=== PATIENT | male | born 1995 | race Caucasian/White ===

== ENCOUNTER 2017-10-03 12:11 | Emergency (ER) | payer OTHER ==
[2017-10-03] MEDS ORDERED: Hydromorphone 1 mg/ml Ampule IV ONE (12:35)
[2017-10-03] MEDS ORDERED: Sodium Chloride 0.9% 1000 ML 1,000 ML IV STA (12:35)
[2017-10-03] MEDS ORDERED: Phenergan 25 MG INJ IV ONE (12:35)
[2017-10-03] MEDS ORDERED: TORAdol 30 mg Injection IV ONE (12:35)
--- NOTE | 2017-10-03 12:35 | ERPHSYRPT ---
- History of Present Illness Time Seen by Provider: 10/03/17 12:28 Historian: patient Exam Limitations: no limitations Patient Subjective Stated Complaint: pt states he has began having right flank pain and radiates to right groin. Triage Nursing Assessment: pt pink, warm, dry. abdomen soft, nontender. bowel sounds present in all 4 qauds. Physician History: The patient is a 22-year-old male with his mother complaining that he had a sudden onset of right flank pain with pain radiating down into his right groin. He works nights and was asleep when the pain woke him up. This began about 2 hours ago. He denies problems with urination. He denies nausea or vomiting. His mother has a prior history of multiple episodes of kidney stones. His mother had her first kidney stone at age 23. His past medical history is unremarkable. Timing/Duration: today, hour(s) (2) Activities at Onset: sleep Quality: sharpness Abdominal Pain Onset Location: flank (right) Pain Radiation: groin (right) Severity of Pain-Max: moderate Severity of Pain-Current: moderate Modifying Factors: Improves With: nothing Associated Symptoms: denies symptoms Previous symptoms: no prior history Allergies/Adverse Reactions: No Known Drug Allergies Allergy (Unverified 10/03/17 12:24) Home Medications: No Reportable Medications [No Reported Medications] 06/03/14 [History] Hx Tetanus, Diphtheria Vaccination/Date Given: Yes (up to date) Hx Influenza Vaccination/Date Given: No Hx Pneumococcal Vaccination/Date Given: No Immunizations Up to Date: Yes - Review of Systems Constitutional: No Fever, No Chills Eyes: No Symptoms Ears, Nose, & Throat: No Symptoms Respiratory: No Cough, No Dyspnea Cardiac: No Chest Pain, No Edema, No Syncope Abdominal/Gastrointestinal: Abdominal Pain, No Nausea, No Vomiting Genitourinary Symptoms: No Dysuria Musculoskeletal: No Back Pain, No Neck Pain Skin: No Rash Neurological: No Dizziness, No Focal Weakness, No Sensory Changes Psychological: No Symptoms Endocrine: No Symptoms Hematologic/Lymphatic: No Symptoms Immunological/Allergic: No Symptoms All Other Systems: Reviewed and Negative - Past Medical History Pertinent Past Medical History: No - Past Surgical History Past Surgical History: No - Social History Smoking Status: Never smoker Exposure to second hand smoke: Yes Drug Use: none Patient Lives Alone: No - Nursing Vital Signs Nursing Vital Signs: Initial Vital Signs Temperature 98.5 F 10/03/17 12:18 Pulse Rate 83 10/03/17 12:18 Respiratory Rate 18 10/03/17 12:18 Blood Pressure 151/85 10/03/17 12:18 O2 Sat by Pulse Oximetry 99 10/03/17 12:18 Pain Scale Pain Intensity 0 - Physical Exam General Appearance: mild distress Eye Exam: PERRL/EOMI, eyes nml inspection Ears, Nose, Throat Exam: normal ENT inspection, pharynx normal, moist mucous membranes Neck Exam: normal inspection, non-tender, supple, full range of motion Respiratory Exam: normal breath sounds, lungs clear, No respiratory distress Cardiovascular Exam: regular rate/rhythm, normal heart sounds Gastrointestinal/Abdomen Exam: tenderness (mild tenderness right flank) Rectal Exam: not done Back Exam: normal inspection, normal range of motion, No CVA tenderness, No vertebral tenderness Extremity Exam: normal inspection, normal range of motion, pelvis stable Neurologic Exam: alert, oriented x 3, cooperative, normal mood/affect, nml cerebellar function, sensation nml, No motor deficits Skin Exam: normal color, warm, dry SpO2 Interpretation: normal SpO2: 99 Oxygen Delivery: Room Air - CT Exams Abdomen/Pelvis CT Interpretation: Tele-radiologist Report, Other (2 mm stone in urinary bladder with mild ureteral hydronephrosis per Dr Garcia.) Ordered Tests: Active Orders 24 hr Category Date Time Status IV Insertion STAT Care 10/03/17 12:35 Active NPO (ED) STAT Care 10/03/17 12:35 Active ABDOMEN AND PELVIS W/0 CONTRAS [CT] Stat Exams 10/03/17 12:35 Completed CBC W DIFF Stat Lab 10/03/17 12:20 Completed CMP Stat Lab 10/03/17 12:20 Completed LIPASE Stat Lab 10/03/17 12:20 Completed Lactic Acid Stat Lab 10/03/17 13:15 Completed UA W/RFX UR CULTURE Stat Lab 10/03/17 12:20 Received Medication Summary Generic Name Dose Route Start Last Admin Trade Name Freq PRN Reason Stop Dose Admin Sodium Chloride 1,000 mls @ 999 mls/hr 10/03/17 12:35 10/03/17 13:00 Sodium Chloride 0.9% 1000 Ml IV 10/03/17 13:35 999 mls/hr .Q1H1M STA Administration Discontinued Medications Generic Name Dose Route Start Last Admin Trade Name Michael PRN Reason Stop Dose Admin Hydromorphone HCl 2 mg 10/03/17 12:35 Hydromorphone 1 Mg/Ml Ampule IV 10/03/17 12:36 STAT ONE Hydromorphone HCl Confirm 10/03/17 12:46 Hydromorphone 1 Mg/Ml Ampule Administered 10/03/17 12:47 Dose 2 mg .ROUTE .STK-MED ONE Sodium Chloride Confirm 10/03/17 12:46 Sodium Chloride 0.9% 1000 Ml Administered 10/03/17 12:47 Dose 1,000 mls @ ud .ROUTE .STK-MED ONE Ketorolac Tromethamine 30 mg 10/03/17 12:35 10/03/17 13:07 Toradol 30 Mg Injection IV 10/03/17 12:36 30 mg STAT ONE Administration Ketorolac Tromethamine Confirm 10/03/17 12:46 Toradol 30 Mg Injection Administered 10/03/17 12:47 Dose 30 mg .ROUTE .STK-MED ONE Promethazine HCl 25 mg 10/03/17 12:35 10/03/17 13:03 Phenergan 25 Mg Inj IV 10/03/17 12:36 25 mg STAT ONE Administration Promethazine HCl Confirm 10/03/17 12:46 Phenergan 25 Mg Inj Administered 10/03/17 12:47 Dose 25 mg .ROUTE .STK-MED ONE Tamsulosin HCl 0.4 mg 10/03/17 12:37 10/03/17 12:58 Flomax 0.4 Mg PO 10/03/17 12:38 0.4 mg DAILY STA Administration Tamsulosin HCl Confirm 10/03/17 12:46 Flomax 0.4 Mg Administered 10/03/17 12:47 Dose 0.4 mg .ROUTE .STK-MED ONE Lab/Rad Data: Laboratory Result Diagrams 10/03/17 12:20 10/03/17 12:20 Laboratory Results 10/03/17 10/03/17 10/03/17 Range/Units 13:15 12:20 12:20 WBC 9.5 (4.0-10.5) K/mm3 RBC 5.34 (4.1-5.6) M/mm3 Hgb 15.5 (12.5-18.0) gm/dl Hct 45.7 (42-50) % MCV 85.6 (78-100) fl MCH 29.0 (26-32) pg MCHC 33.9 (32-36) g/dl RDW 13.3 (11.5-14.0) % Plt Count 182 (150-450) K/mm3 MPV 11.2 H (6-9.5) fl Gran % 58.2 (36.0-66.0) % Lymphocytes % 27.1 (24.0-44.0) % Monocytes % 8.9 (0.0-12.0) % Eosinophils % 5.4 H (0.00-5.0) % Basophils % 0.4 (0.0-0.4) % Basophils # 0.04 (0-0.4) Sodium 140 (136-145) mEq/L Potassium 3.8 (3.5-5.1) mEq/L Chloride 104 (98-107) mEq/L Carbon Dioxide 23.2 (21-32) mEq/L Anion Gap 16.4 H (5-15) MEQ/L BUN 9 (9-20) mg/dL Creatinine 1.24 (0.55-1.30) mg/dl Estimated GFR > 60 ML/MIN Glucose 112 H (70-110) MG/DL Lactic Acid 1.2 (0.4-2.0) Calcium 8.8 (8.5-10.1) mg/dL Total Bilirubin 0.50 (0.2-1.0) mg/dL AST 37 (15-37) U/L ALT 30 (12-78) U/L Alkaline Phosphatase 82 (46-116) U/L Serum Total Protein 7.4 (6.4-8.2) gm/dL Albumin 3.9 (3.4-5.0) g/dL Lipase 92 (73-393) U/L - Progress Progress: improved Counseled pt/family regarding: lab results, diagnosis, need for follow-up, rad results - Departure Time of Disposition: 13:31 Departure Disposition: Home Clinical Impression: Nephrolithiasis Condition: Stable Critical Care Time: No Referrals: CHRISTOPHER NASCIMENTO [Primary Care Provider] - Additional Instructions: The CT scan of your abdomen and pelvis showed a small 2 mm kidney stone already in your bladder. You were given Toradol 30 mg, Phenergan 25 mg, and IV fluids in the ER. You have no other kidney stones visible in the kidneys at this time. Follow-up with your primary care doctor with the stone that you passed.
[2017-10-03] MEDS ORDERED: Flomax 0.4 MG PO STA (12:37)
[2017-10-03 12:43] LABS: BASOPHIL % 0.4 % (0.0-0.4); Basophil (Absolute #) 0.04 (0-0.4); Eosinophil % 5.4 % (0.00-5.0); Eosinophil (Absolute #) 0.51 (0-0.5); Granulocyte Absolute (ANC) 5.54 (1.4-6.9); Granulocytes % 58.2 % (36.0-66.0); Hematocrit 45.7 % (42-50); Hemoglobin 15.5 gm/dl (12.5-18.0); Lymphocyte (Absolute #) 2.58 (1.0-4.6); Lymphocytes % 27.1 % (24.0-44.0); Mean Cell Volume 85.6 fl (78-100); Mean Corpuscular Hgb Concent. 33.9 g/dl (32-36); Mean Platelet Volume 11.2 fl (6-9.5); Monocyte (Absolute #) 0.85 (0.0-1.3); Monocytes % 8.9 % (0.0-12.0); Platelet Count 182 K/mm3 (150-450); Red Blood Count 5.34 M/mm3 (4.1-5.6); Red Cell Distribution Width 13.3 % (11.5-14.0); White Blood Count 9.5 K/mm3 (4.0-10.5)
[2017-10-03] MEDS ORDERED: TORAdol 30 mg Injection ONE (12:46)
[2017-10-03] MEDS ORDERED: Phenergan 25 MG INJ ONE (12:46)
[2017-10-03] MEDS ORDERED: Flomax 0.4 MG ONE (12:46)
[2017-10-03] MEDS ORDERED: Hydromorphone 1 mg/ml Ampule ONE (12:46)
[2017-10-03] MEDS ORDERED: Sodium Chloride 0.9% 1000 ML 1,000 ML ONE (12:46)
[2017-10-03 12:58] LABS: ALBUMIN 3.9 g/dL (3.4-5.0); ALKALINE PHOSPHATASE 82 U/L (46-116); ANION GAP 16.4 MEQ/L (5-15); BLOOD UREA NITROGEN 9 mg/dL (9-20); CHLORIDE 104 mEq/L (98-107); Calcium 8.8 mg/dL (8.5-10.1); Carbon Dioxide 23.2 mEq/L (21-32); Creatinine 1 1.24 mg/dl (0.55-1.30); EST GLOMERULAR FILTRATION RATE > 60 ML/MIN; Glucose 112 MG/DL (70-110); LIPASE 92 U/L (73-393); Potassium 3.8 mEq/L (3.5-5.1); SGOT/AST 37 U/L (15-37); SGPT/ALT 30 U/L (12-78); SODIUM 140 mEq/L (136-145); Total Protein 7.4 gm/dL (6.4-8.2)
--- NOTE | 2017-10-03 13:07 | XRAY ---
Indication: Right flank pain. Multiple contiguous axial images obtained through the abdomen and pelvis without contrast using renal stone protocol. Comparison: None Lung bases are clear. Heart is not enlarged. There is a 2-3 mm calculus in the posterior bladder. Right ureter is minimally prominent presumed from recent passage of said calculus. No hydronephrosis or perinephric fluid. Noncontrasted stomach and bowel loops appear nonobstructed. Normal appendix. No free fluid/air. Spleen is enlarged measuring 15 cm in greatest axial dimension. Mild fatty liver. Remaining liver, gallbladder, pancreas, spleen, adrenal glands, kidneys, bladder, and aorta appear unremarkable for noncontrast exam. Osseous structures intact. Impression: 1. 2-3 mm urinary bladder calculus presumed from right-sided passage. 2. Incidental fatty liver and splenomegaly. CTDI 23.68
[2017-10-03 13:36] VITALS: O2SAT 99
[2017-10-03 13:58] VITALS: BP 138/69; PULSE 83
[2017-10-03 16:09] LABS: Appearance CLEAR (CLEAR); Glucose NEGATIVE (NEGATIVE); Leukocyte Esterase NEGATIVE (NEGATIVE); Nitrite NEGATIVE (NEGATIVE); Protein,Urine Dip NEGATIVE (Negative)
[2017-10-03 16:10] LABS: Bilirubin NEGATIVE (NEGATIVE); Blood 250 Ery/ul (0-5); Epithelial Cells RARE /HPF (FEW); Ketones NEGATIVE (NEGATIVE); Mucus SLIGHT /HPF (NEGATIVE); Urobilinogen NORMAL mg/dL (0-1); WBC 0-2 /HPF (0-5)
== END 2017-10-03 14:07 | disposition home or self-care (01) ==
LOC: ED 12:11
DX: N20.0 Calculus of kidney (principal)
CPT/HCPCS: 36000; 36415; 74176; 80053; 81000; 83605; 83690; 85025; 96360; 96374; 96375; 99284; J1170; J1885; J2550; A9270-GY

== ENCOUNTER 2021-03-14 21:06 | Emergency (ER) | payer OTHER ==
[2021-03-14] MEDS ORDERED: XYLOCAINE 1% HCL 20 ML MDV IJ ONE (21:07)
[2021-03-14 21:15] VITALS: O2SAT 99
[2021-03-14 22:00] LABS: INFLUENZA A NEGATIVE (NEGATIVE); INFLUENZA B NEGATIVE (NEGATIVE)
[2021-03-14 22:23] LABS: Appearance CLEAR (CLEAR); Bilirubin NEGATIVE (NEGATIVE); Blood NEGATIVE Ery/ul (0-5); Epithelial Cells RARE /HPF (FEW); Glucose NEGATIVE (NEGATIVE); Ketones NEGATIVE (NEGATIVE); Leukocyte Esterase NEGATIVE (NEGATIVE); Mucus SLIGHT /HPF (NEGATIVE); Nitrite NEGATIVE (NEGATIVE); Protein,Urine Dip 30 (Negative); Specific Gravity 1.026 (1.005-1.025); Urobilinogen NEGATIVE mg/dL (0-1)
[2021-03-14] MEDS ORDERED: Rocephin 1000 MG INJ IM ONE (22:31)
[2021-03-14] MEDS ORDERED: Zithromax 250 MG TABLET PO ONE (22:32)
--- NOTE | 2021-03-14 22:36 | ERPHSYRPT ---
- History of Present Illness Source: patient Exam Limitations: other (Very poor historian) Patient Subjective Stated Complaint: Patient states " I have been having nasal congestion and loose stools for the last 3 days." Triage Nursing Assessment: Patient arrived to ED and ambulated back to room without difficulty. Patient A/O times 4. Patient gait slow and steady. Patient able to follow instructions without difficulty. Lungs clear bilateral A/P throughout. Patient denies SOB. Patient denies chest pain. Cap refill < 3 seconds. No S/S of acute respiratory distress noted. 02 sat > 95%. + BS times 4 quads. ABD soft, round, non-distended. Patient denies any pain or discomfort upon palpitation. Patient states he feels like he has bubbles in his belly. Patient stated he was at work today and he had loose stools so many times that his co-workers were getting mad. Patient stated he has tried pepto, tylenol, nasal spray and nothing seems to help. Patient stated he is congested mostly right side of nose and has been having pretty bad headache. Patient denies any N/V. Patient states everytime he eats he has to run to bathroom. Patient states his fluid intake has been fine. Skin turgor < 3 seconds. Oral mucosa moist, clean. No S/S of dehydration noted. Throat WNL. Bilateral ears upon visual inspection WNL. No JVD noted. Patient denies any throat or ear pain. Patient denies any cough Physician History: 25 yo wm who is a very poor historian states that he has had nasal congestion x3days/diarrhea but denies ST/cough/abdominal pain/fever/nausea/vomiting/melena/hematochezia. Pt states that he is very ill and is worried about his job. Unsure of the cause of his vague symptoms, CBC/CMP/strep/flu/UA ordered. Pt refused blood work because he is afraid of needles. Timing/Duration: other (3 days) Modifying Factors: Improves With: nothing Associated Symptoms: No nausea, No vomiting, No abdominal pain, No shortness of breath, No heartburn, No diaphoresis, No cough, No chills, No chest pain, No fever, No headaches, No loss of appetite, No malaise, No rash, No syncope, No seizure, No weakness Allergies/Adverse Reactions: No Known Drug Allergies Allergy (Unverified 06/14/21 21:15) Home Medications: No Reportable Medications [No Reported Medications] 06/03/14 [History] Hx Tetanus, Diphtheria Vaccination/Date Given: Yes Hx Influenza Vaccination/Date Given: No Hx Pneumococcal Vaccination/Date Given: No Immunizations Up to Date: Yes Travel Risk - International Travel Have you traveled outside of the country in past 3 weeks: No If Yes, where;: N - Coronavirus Screening Are you exhibiting any of the following symptoms?: No Close contact with a COVID-19 positive Pt in past 14-21 Days: No - Vaccine Status Have you recieved a Covid-19 vaccination: No - Review of Systems Constitutional: No Symptoms, Fatigue, Lethargy Eyes: No Symptoms Ears, Nose, & Throat: No Symptoms, Nose Congestion, Nose Discharge Respiratory: No Symptoms Cardiac: No Symptoms Abdominal/Gastrointestinal: No Symptoms, Diarrhea Genitourinary Symptoms: No Symptoms Musculoskeletal: No Symptoms Skin: No Symptoms Neurological: No Symptoms Psychological: No Symptoms Endocrine: No Symptoms Hematologic/Lymphatic: No Symptoms Immunological/Allergic: No Symptoms - Past Medical History Pertinent Past Medical History: No Neurological History: No Pertinent History ENT History: No Pertinent History Cardiac History: No Pertinent History Respiratory History: No Pertinent History Endocrine Medical History: No Pertinent History Musculoskeletal History: No Pertinent History GI Medical History: No Pertinent History History: No Pertinent History Psycho-Social History: No Pertinent History Male Reproductive Disorders: No Pertinent History - Past Surgical History Past Surgical History: No Neuro Surgical History: No Pertinent History Cardiac: No Pertinent History Respiratory: No Pertinent History Gastrointestinal: No Pertinent History Genitourinary: No Pertinent History Musculoskeletal: No Pertinent History Male Surgical History: No Pertinent History - Social History Smoking Status: Former smoker Exposure to second hand smoke: Yes Drug Use: none Patient Lives Alone: No Significant Family History: no pertinent family hx - Nursing Vital Signs Nursing Vital Signs: Initial Vital Signs Temperature 98.2 F 03/14/21 21:13 Pulse Rate 86 03/14/21 21:13 Respiratory Rate 22 03/14/21 21:13 Blood Pressure 129/93 03/14/21 21:13 O2 Sat by Pulse Oximetry 99 03/14/21 21:13 Pain Scale Pain Intensity 4 - Physical Exam General Appearance: no apparent distress Eye Exam: PERRL/EOMI, eyes nml inspection Ears, Nose, Throat Exam: normal ENT inspection, TMs normal, pharynx normal, moist mucous membranes Neck Exam: normal inspection, non-tender, supple, No meningismus, No mass, No Brudzinski, No Kernig's Respiratory Exam: normal breath sounds, lungs clear, airway intact, No respiratory distress Cardiovascular Exam: regular rate/rhythm, normal heart sounds, normal peripheral pulses, No murmur Gastrointestinal/Abdomen Exam: soft, normal bowel sounds, No tenderness Extremity Exam: normal inspection, normal range of motion Neurologic Exam: alert, oriented x 3, cooperative, director nurses' registry II-XII nml as tested, normal mood/affect, nml station & gait, sensation nml, No motor deficits, No sensory deficit Skin Exam: normal color, warm, dry, No rash Lymphatic Exam: No adenopathy SpO2 Interpretation: normal SpO2: 99 O2 Delivery: Room Air - Course Nursing assessment & vital signs reviewed: Yes Ordered Tests: Active Orders 24 hr Category Date Time Status INFLUENZA A+B DENISSE Stat Lab 03/14/21 21:35 Completed UA W/RFX UR CULTURE Stat Lab 03/14/21 22:12 Completed Medication Summary Discontinued Medications Generic Name Dose Route Start Last Admin Trade Name Vincentq PRN Reason Stop Dose Admin Azithromycin 1,000 mg 03/14/21 22:32 03/14/21 22:42 Zithromax 250 Mg Tablet PO 03/14/21 22:33 1,000 mg STAT ONE Administration Azithromycin Confirm 03/14/21 22:38 Zithromax 250 Mg Tablet Administered 03/14/21 22:39 Dose 1,000 mg .ROUTE .STK-MED ONE Ceftriaxone Sodium 1,000 mg 03/14/21 22:31 03/14/21 22:43 Rocephin 1000 Mg Inj IM 03/14/21 22:32 1,000 mg STAT ONE Administration Ceftriaxone Sodium Confirm 03/14/21 22:38 Rocephin 1000 Mg Inj Administered 03/14/21 22:39 Dose 1,000 mg .ROUTE .STK-MED ONE Lab/Rad Data: Laboratory Results 03/14/21 03/14/21 03/14/21 Range/Units 22:12 21:35 21:35 Urine Color YELLOW (YELLOW) Urine Appearance CLEAR (CLEAR) Urine pH 5.0 (5-6) Ur Specific [place] 1.026 (1.005-1.025) Urine Protein 30 (Negative) Urine Ketones NEGATIVE (NEGATIVE) Urine Blood NEGATIVE (0-5) López/ul Urine Nitrite NEGATIVE (NEGATIVE) Urine Bilirubin NEGATIVE (NEGATIVE) Urine Urobilinogen NEGATIVE (0-1) mg/dL Ur Leukocyte Esterase NEGATIVE (NEGATIVE) Urine WBC (Auto) 16-25 (0-5) /HPF Urine RBC (Auto) 3-5 (0-2) /HPF U Epithel Cells (Auto) RARE (FEW) /HPF Urine Bacteria (Auto) NONE (NEGATIVE) /HPF Urine Mucus (Auto) SLIGHT (NEGATIVE) /HPF Urine Culture Reflexed NO (NO) Urine Glucose NEGATIVE (NEGATIVE) mg/dL Influenza Type A Ag NEGATIVE (NEGATIVE) Influenza Type B Ag NEGATIVE (NEGATIVE) Group A Strep Antibody NOT DETECTED (NEGATIVE) - Progress Progress Note: 03/14/21 22:45 Pt refused blood work because he does not like needles and said we were rude. I explained to him that his symptoms were very vague, and that I had to take a thorough hx and do blood work and was in no way trying to be rude. He later told my nurse that he was upset because his had cheated on him, and he found out that she had chlamydia. Pt has WBC in his urine, so urine GC/Chlamydia sent off. He was treated w Rocephin 1gm IM/Zithromax 1gm po. Covid19 done. 03/14/21 23:12 Pt seems pleased w work excuse Counseled pt/family regarding: lab results, need for follow-up - Departure Departure Disposition: Home Clinical Impression: URI (upper respiratory infection), Exposure to chlamydia Condition: Stable Critical Care Time: No Referrals: DOCTOR,NO FAMILY [Primary Care Provider] - Instructions: Chlamydia and Gonorrhea, Cough, Runny Nose, and the Common Cold (DC), Screening for Sexually Transmitted Infections, Chlamydia (DC) Additional Instructions: You have been treated for gonorrhea/chlamydia and require no further treatment. Those tests will be back in 2-3 days Fluids/Rest Follow up with your family MD in 2-3 days Return to ER as needed Forms: Work/School Release Form
[2021-03-14] MEDS ORDERED: Zithromax 250 MG TABLET ONE (22:38)
[2021-03-14] MEDS ORDERED: Rocephin 1000 MG INJ ONE (22:38)
[2021-03-14 23:11] VITALS: BP 125/88; PULSE 85
[2021-03-15 00:02] LABS: GC DNA Probe NOT DETECTED (NEGATIVE)
[2021-03-15 00:22] LABS: CHLAMYDIA DNA DETECTED (NEGATIVE)
== END 2021-03-14 23:10 | disposition home or self-care (01) ==
LOC: ED 21:06
DX: J06.9 Acute upper respiratory infection, unspecified (principal); Z20.2 Contact with and (suspected) exposure to infections with a predominantly sexual mode of transmission
CPT/HCPCS: 81001; 87400; 87491; 87591; 87651; 96372; 99284; U0003; J0696; A9270-GY

== ENCOUNTER 2022-10-13 21:09 | Emergency (ER) | payer OTHER ==
--- NOTE | 2022-10-13 21:29 | ERPHSYRPT ---
- History of Present Illness Time Seen by Provider: 10/13/22 21:28 Source: patient Exam Limitations: no limitations Physician History: Pt c/o right knee, ankle pain s/p fall Ankle pain over lateral aspect Knee pain over patella w/ bruising Difficult to bear weight No symptoms of instability. Method of Injury: fell Occurred: just prior to arrival Quality: constant Severity of Pain-Max: moderate Severity of Pain-Current: moderate Lower Extremities Pain: knee: right, ankle: right Modifying Factors: Worsens With: movement Associated Symptoms: unable to bear weight Allergies/Adverse Reactions: No Known Drug Allergies Allergy (Verified 10/13/22 21:16) Home Medications: Sertraline HCl 50 mg [Zoloft 50 mg Tablet] 50 mg PO DAILY 10/13/22 [History] lamoTRIgine [Lamictal Xr] 25 mg PO DAILY 10/13/22 [History] Hx Tetanus, Diphtheria Vaccination/Date Given: Yes Hx Influenza Vaccination/Date Given: No Hx Pneumococcal Vaccination/Date Given: No Travel Risk - Vaccine Status Have you recieved a Covid-19 vaccination: No - Review of Systems Constitutional: No Symptoms Eyes: No Symptoms Ears, Nose, & Throat: No Symptoms Respiratory: No Symptoms Cardiac: No Symptoms Abdominal/Gastrointestinal: No Symptoms Genitourinary Symptoms: No Symptoms Musculoskeletal: Fall, Joint Pain (ankle, knee) Skin: No Symptoms Neurological: No Symptoms Psychological: No Symptoms Endocrine: No Symptoms Hematologic/Lymphatic: No Symptoms Immunological/Allergic: No Symptoms All Other Systems: Reviewed and Negative - Past Medical History Pertinent Past Medical History: No Neurological History: No Pertinent History ENT History: No Pertinent History Cardiac History: No Pertinent History Respiratory History: No Pertinent History Endocrine Medical History: No Pertinent History Musculoskeletal History: No Pertinent History GI Medical History: No Pertinent History History: No Pertinent History Psycho-Social History: No Pertinent History Male Reproductive Disorders: No Pertinent History - Past Surgical History Past Surgical History: No Neuro Surgical History: No Pertinent History Cardiac: No Pertinent History Respiratory: No Pertinent History Gastrointestinal: No Pertinent History Genitourinary: No Pertinent History Musculoskeletal: No Pertinent History Male Surgical History: No Pertinent History - Social History Smoking Status: Former smoker Exposure to second hand smoke: Yes Drug Use: none Patient Lives Alone: No Significant Family History: no pertinent family hx - Nursing Vital Signs Nursing Vital Signs: Initial Vital Signs Temperature 99.2 F 10/13/22 21:17 Pulse Rate 97 H 10/13/22 21:17 Respiratory Rate 18 10/13/22 21:17 Blood Pressure 153/98 10/13/22 21:17 O2 Sat by Pulse Oximetry 98 10/13/22 21:17 Pain Scale Pain Intensity 4 - Physical Exam General Appearance: no apparent distress Eyes, Ears, Nose, Throat Exam: normal ENT inspection Neck Exam: normal inspection Cardiovascular/Respiratory Exam: normal breath sounds Gastrointestinal/Abdominal Exam: non-tender Knees Exam: right knee: normal range of motion, bone tenderness (over patella), ecchymosis Ankle Exam: right ankle: limited range of motion, pain, soft tissue tenderness, swelling Foot Exam: right foot: non-tender, normal inspection Neuro/Tendon Exam: normal sensation Mental Status Exam: alert, oriented x 3, cooperative Skin Exam: normal color, warm, dry, ecchymosis (right patella) SpO2 Interpretation: normal O2 Delivery: Room Air - Radiology Exams Right Knee X-ray Interpretation: Negative Right Ankle X-ray Interpretation: Negative Ordered Tests: Active Orders 24 hr Category Date Time Status ANKLE (3 VIEWS) Stat Exams 10/13/22 21:33 Taken KNEE (3 VIEWS) Stat Exams 10/13/22 21:33 Ordered - Progress Progress: unchanged Progress Note: XR ankle, knee negative Continue conservative management. CAM walking boot Pain control w/ Tylenol/NSAIDs ROM and strength exercises. F/U ortho 10/13/22 22:56 Counseled pt/family regarding: diagnosis, need for follow-up, rad results - Departure Departure Disposition: Home Clinical Impression: Ankle sprain Qualifiers: Encounter type: initial encounter Involved ligament of ankle: anterior talofibular ligament Laterality: right Qualified Code(s): S93.491A - Sprain of other ligament of right ankle, initial encounter Condition: Good Critical Care Time: No Referrals: JUANITA SLOAN MD [NON-STAFF PHY W/O PRIVILEGES] - Follow up/PCP as directed Instructions: Ankle Sprain (DC)
[2022-10-13 22:25] VITALS: BP 137/95; PULSE 67; O2SAT 100
--- NOTE | 2022-10-14 07:30 | XRAY ---
Indication: Pain following fall. Comparison: None 3 view right ankle obtained. No bony, articular, or soft tissue abnormalities.
--- NOTE | 2022-10-14 07:32 | XRAY ---
Indication: Pain following fall. Comparison: None 4 view right knee obtained. No bony, articular, or soft tissue abnormalities.
== END 2022-10-13 23:18 | disposition home or self-care (01) ==
LOC: ED 21:09
DX: S93.491A Sprain of other ligament of right ankle, initial encounter (principal); M25.561 Pain in right knee; M25.571 Pain in right ankle and joints of right foot; W19.XXXA Unspecified fall, initial encounter; Z79.899 Other long term (current) drug therapy; Z28.310 Unvaccinated for COVID-19
CPT/HCPCS: 73562; 73610; 99282

== ENCOUNTER 2025-02-03 21:46 | Emergency (ER) | payer OTHER ==
[2025-02-03 22:08] VITALS: TEMP 97.7
--- NOTE | 2025-02-03 22:39 | ERPHSYRPT ---
- History of Present Illness Time Seen by Provider: 02/03/25 22:34 Source: patient Exam Limitations: no limitations Patient Subjective Stated Complaint: pt reports approx 1400 today he was trying to get a boat off of a trailer when he fell onto the metal deck of the boat. pt reports neck pain and right shoulder pain, pt states he is unsure of LOC but does report "seeing stars" and feeling very dizzy after the fall. Triage Nursing Assessment: pt is aox3, ambulatory to room with no difficulties, pupils perrl, afebrile, resps easy and non labored, cap refill < 3 seconds, radial pulses strong and equal, pt skin pink warm dry. no obvious injury is noted at this time, pt does have some tenderness to the right shoulder and posterior neck that is increased with movement. Physician History: 29-year-old male presents to our ED for evaluation of chest soreness and right shoulder soreness. Patient states he was trying to get a boat off of a trailer when he fell onto the metal deck. Patient fell approximately 2 to 3 feet. Patient does not report neck injury and spite of what the nurse documents. Patient denies neck pain. He complains of pain to his right shoulder and chest wall. The right shoulder pain involves the right upper trapezius. However patient declined imaging studies for neck as he does not have any neck pain or discomfort. There was no loss of consciousness. The fall was mechanical and not associated with any neuro or cardiovascular symptomology. Patient denies loss of consciousness. Patient states he initially felt dizzy after the fall but the dizziness had quickly resolved. Patient declined a CT of his head. Patient declined a CT of his neck. Patient was very specific that he wants an x-ray of his chest and his right shoulder only. Patient voices no other complaints or concerns at this time. Patient declined pain medication. Timing/Duration: today Severity: moderate Associated Symptoms: denies symptoms Allergies/Adverse Reactions: No Known Drug Allergies Allergy (Verified 02/03/25 22:08) Home Medications: No Reportable Medications [No Reported Medications] 02/03/25 [History] Hx Tetanus, Diphtheria Vaccination/Date Given: Yes Hx Influenza Vaccination/Date Given: No Hx Pneumococcal Vaccination/Date Given: No Travel Risk - International Travel Have you traveled outside of the country in past 3 weeks: No - Review of Systems Constitutional: No Symptoms, No Fever, No Chills Eyes: No Symptoms Ears, Nose, & Throat: No Symptoms Respiratory: No Symptoms, No Cough, No Dyspnea Cardiac: No Symptoms, No Chest Pain, No Edema, No Syncope Abdominal/Gastrointestinal: No Symptoms, No Abdominal Pain, No Nausea, No Vomiting, No Diarrhea Genitourinary Symptoms: No Symptoms, No Dysuria Musculoskeletal: No Symptoms, No Back Pain, No Neck Pain Skin: No Symptoms, No Rash Neurological: No Symptoms, No Dizziness, No Focal Weakness, No Sensory Changes Psychological: No Symptoms Endocrine: No Symptoms Hematologic/Lymphatic: No Symptoms Immunological/Allergic: No Symptoms All Other Systems: Reviewed and Negative - Past Medical History Pertinent Past Medical History: No Neurological History: No Pertinent History ENT History: No Pertinent History Cardiac History: No Pertinent History Respiratory History: No Pertinent History Endocrine Medical History: No Pertinent History Musculoskeletal History: No Pertinent History GI Medical History: No Pertinent History History: No Pertinent History Psycho-Social History: No Pertinent History Male Reproductive Disorders: No Pertinent History - Past Surgical History Past Surgical History: No Neuro Surgical History: No Pertinent History Cardiac: No Pertinent History Respiratory: No Pertinent History Gastrointestinal: No Pertinent History Genitourinary: No Pertinent History Musculoskeletal: No Pertinent History Male Surgical History: No Pertinent History Significant Family History: no pertinent family hx - Social History Smoking Status: Never smoker Exposure to second hand smoke: No Drug Use: none - Social Determinants of Health Will the patient participate in the screening: Yes Do you worry about a steady place to live?: No Do you have any problems with any of the following?: No known problems In the past 12 months,have you had to go without utilities?: No Transportation Issues: No Has anyone in your support network made you feel unsafe?: No Have you or anyone in your house had to go w/o enough food: No - Nursing Vital Signs Nursing Vital Signs: Initial Vital Signs Pulse Rate 96 H 02/03/25 21:59 Respiratory Rate 19 02/03/25 21:59 Blood Pressure 135/87 02/03/25 21:59 O2 Sat by Pulse Oximetry 100 02/03/25 21:59 Pain Scale Pain Intensity 5 - Physical Exam General Appearance: no apparent distress, alert Eye Exam: PERRL/EOMI, eyes nml inspection Ears, Nose, Throat Exam: normal ENT inspection, TMs normal, pharynx normal, moist mucous membranes Neck Exam: normal inspection, non-tender, supple, full range of motion Respiratory Exam: normal breath sounds, lungs clear, airway intact, other (Pain in anterior chest wall with certain movements and postures. Overlying soft tissue intact. No bruising no cuts or scrapes), No respiratory distress Cardiovascular Exam: regular rate/rhythm, normal heart sounds, normal peripheral pulses Gastrointestinal/Abdomen Exam: soft, normal bowel sounds, No tenderness, No mass Back Exam: normal inspection, normal range of motion, No CVA tenderness, No vertebral tenderness Extremity Exam: normal inspection, normal range of motion, pelvis stable, other (Some tenderness to the right shoulder posterolateral deltoid area. Pain worse with palpation and movement) Neurologic Exam: alert, oriented x 3, cooperative, normal mood/affect, sensation nml, No motor deficits Skin Exam: normal color, warm, dry, No rash Lymphatic Exam: No adenopathy SpO2 Interpretation: normal SpO2: 98 O2 Delivery: Room Air - Course Nursing assessment & vital signs reviewed: Yes EKG Interpreted by Me: RATE (96), Sinus Rhythm, NORMAL AXIS, NORMAL INTERVALS, NORMAL QRS - Radiology Exams Chest X-ray Interpretation: Interpreted by me (Nonacute chest) Shoulder X-ray Interpretation: Interpreted by me (No fracture or dislocation of the involved right shoulder) Ordered Tests: Active Orders 24 hr Category Date Time Status EKG-ER Only STAT Care 02/03/25 22:33 Active CHEST 1 VIEW (PORTABLE) Stat Exams 02/03/25 22:31 Taken SHOULDER Stat Exams 02/03/25 22:31 Taken - Progress Progress: improved Progress Note: 29-year-old male presents to our ED for evaluation of shoulder pain and chest wall pain after a fall. Patient requested x-ray of his chest and his right shoulder. Chest x-ray negative for acute pathology. Right shoulder negative for fracture dislocation. Screening EKG completed. EKG normal sinus rhythm. Patient declined pain medication. Patient resting comfortably he is currently asymptomatic. Patient voices no other complaints or concerns at this time. No indication for further workup will discharge home. Patient agrees to follow-up with his primary care doctor within 48 hours for reevaluation. Portions of this note were created with voice recognition technology. There may be grammatical, spelling, punctuation or sound alike errors Complexity of problem addressed is moderate acute complicated. No critical care time. Complexity of data reviewed and analyzed as moderate. Dr. Perez independently reviewed the x-ray of the chest and right shoulder. Formal read pending. Risk of complication and or risk of morbidity/mortality of patient management is low. Vital stable. Time spent to discharge patient is approximately 10 minutes. Plan of care established for shared decision making. No social determinants of health present to impede follow-up. Portions of this note were created with voice recognition technology. There may be grammatical, spelling, punctuation or sound alike errors 02/03/25 23:34 02/03/25 23:36 Counseled pt/family regarding: diagnosis, need for follow-up, rad results - Departure Departure Disposition: Home Clinical Impression: Fall, Chest wall muscle strain, Shoulder strain Condition: Stable Critical Care Time: No Referrals: DOCTOR,NO FAMILY [NON-STAFF PHY W/O PRIVILEGES, UNKNOWN] - Follow up/PCP as directed JOSE CARLOS TOBIAS MD [ACTIVE STAFF, [facility]] - Follow up/PCP as directed Additional Instructions: Discharge/Care Plan ZULEMA ALEXIS was seen on 02/03/25 in the Emergency Room. The patient was counseled regarding Diagnosis,Lab results, Imaging studies, need for follow up and when to return to the Emergency Room. Prescriptions given: Discharge Note I have spoken with the patient and/or caregivers. I have explained the patient's condition, diagnosis and treatment plan based on the information available to me at this time. I have answered the patient's and/or caregiver's questions and addressed any concerns. The patient and/or caregivers have as good understanding of the patient's diagnosis, condition and treatment plan as can be expected at this point. The vital signs have been stable. The patient's condition is stable and appropriate for discharge from the emergency department. The patient will pursue further outpatient evaluation with the primary care physician or other designated or consulting physician as outlined in the discharge instructions. The patient and/or caregivers are agreeable to this plan of care and follow-up instructions have been explained in detail. The patient and/or caregivers have received these instruction. The patient/and or caregivers are aware that any significant change in condition or worsening of symptoms should prompt an immediate return to this or the closest emergency department or call 911.
[2025-02-03 23:17] VITALS: PULSE 98
[2025-02-03 23:35] VITALS: O2SAT 98
[2025-02-03 23:37] VITALS: BP 108/86; RESP 22
--- NOTE | 2025-02-04 08:50 | XRAY ---
Indication: Pain following fall. Comparison: September 09, 2024 Portable chest again demonstrate normal heart, lungs, and bony thorax.
--- NOTE | 2025-02-04 08:50 | XRAY ---
Indication: Pain following fall. Comparison: None 3 view right shoulder obtained. No bony, articular, or soft tissue abnormalities.
== END 2025-02-03 23:43 | disposition home or self-care (01) ==
LOC: ED 21:46
DX: S46.911A Strain of unspecified muscle, fascia and tendon at shoulder and upper arm level, right arm, initial encounter (principal); S29.011A Strain of muscle and tendon of front wall of thorax, initial encounter; W17.89XA Other fall from one level to another, initial encounter
CPT/HCPCS: 71045; 73030; 93005; 99283; 99284